=== PATIENT | female | born 1995 | race African-American/Black ===

== ENCOUNTER 2024-09-04 11:09 | Emergency (ER) | payer OTHER ==
[~2024-09-04] VITALS: Ht 172.7 cm; Wt 115.4 kg
[2024-09-04 11:11] VITALS: O2SAT 99
[2024-09-04 11:12] VITALS: BP 141/99; PULSE 98; RESP 16; TEMP 36.7; O2SAT 98
[2024-09-04 11:48] LABS: BASOPHILS % 0.5 % (0.0-2.0); EOSINOPHILS % 4.8 % (0.0-5.0); HEMATOCRIT. 37.4 % (36.0-48.0); HEMOGLOBIN. 12.6 g/dL (12.0-16.0); LYMPHOCYTES % 33.6 % (20.0-50.0); MEAN CORPUSCULAR HEMOGLOBIN 31.3 pg (28.0-32.0); MEAN CORPUSCULAR HGB CONC 33.8 g/dL (31.0-37.0); MEAN CORPUSCULAR VOLUME 92.6 fL (81.0-99.0); MEAN PLATELET VOLUME 8.8 fl (7.4-10.4); MONOCYTES % 4.7 % (2.0-8.0); NEUTROPHILS % 56.4 % (40.0-76.0); PLATELET 332 x1000/uL (130-400); RED BLOOD CELL COUNT 4.04 mill/uL (4.2-5.4); RED CELL DISTRIBUTION WIDTH 13.9 % (11.6-14.6); WHITE BLOOD COUNT 5.6 x1000/uL (4.5-11.0)
[2024-09-04 12:07] LABS: CHLORIDE 107 mEq/L (98-107); HCG SCREEN NEGATIVE; POTASSIUM 3.8 mEq/L (3.5-5.1); SODIUM 142 mEq/L (136-145)
[2024-09-04 12:08] LABS: CARBON DIOXIDE 28 mEq/L (21-32)
[2024-09-04 12:09] LABS: CALCIUM 9.2 mg/dL (8.7-10.4)
[2024-09-04 12:13] LABS: CREATININE 0.7 mg/dL (0.6-1.0); GLUCOSE 125 mg/dL (70-105); UREA NITROGEN BLOOD 13 mg/dL (9-23)
== END 2024-09-04 13:00 | disposition home or self-care (01) ==
LOC: ER 11:09
DX: I10 Essential (primary) hypertension (principal); R51.9 Headache, unspecified
CPT/HCPCS: 36415; 80048; 84703; 85025; 99284